=== PATIENT | female | born 1975 | race Caucasian/White ===

== ENCOUNTER 2018-12-21 14:10 | Emergency (ER) | payer MEDICAID ==
[~2018-12-21] VITALS: Ht 162.6 cm; Wt 69.4 kg
[2018-12-21 14:18] VITALS: BP 134/75
[2018-12-21] MEDS ORDERED: LIDOCAINE-MPF 1%, 5ML ONE (14:29)
[2018-12-21] MEDS ORDERED: LIDOCAINE-MPF 1%, 5ML INFIL ONE (14:30)
--- NOTE | 2018-12-21 15:08 | NUR ---
PA AT BEDSIDE FOR REDUCTION, NEEDS POSTERIOR SPLINT
--- NOTE | 2018-12-21 15:53 | NUR ---
PT TO XRAY
--- NOTE | 2018-12-21 16:20 | NUR ---
TECH AT BEDSIDE FOR SPLINT
== END 2018-12-21 16:45 | disposition home or self-care (01) ==
LOC: ED 16:00
DX: S93.122A Dislocation of metatarsophalangeal joint of left great toe, initial encounter (principal); W10.9XXA Fall (on) (from) unspecified stairs and steps, initial encounter; Y93.89 Activity, other specified; Y92.009 Unspecified place in unspecified non-institutional (private) residence as the place of occurrence of the external cause; Y99.8 Other external cause status
CPT/HCPCS: 28630; 99284

== ENCOUNTER 2018-12-26 16:01 | Emergency (ER) | payer MEDICAID ==
[~2018-12-26] VITALS: Ht 162.6 cm; Wt 70.1 kg
[2018-12-26 16:13] VITALS: BP 117/81
[2018-12-26] MEDS ORDERED: BUSP5TAB2 PO (16:26)
[2018-12-26] MEDS ORDERED: BUPR300T49 PO (16:26)
== END 2018-12-26 17:40 | disposition home or self-care (01) ==
LOC: ED 17:28
DX: G89.11 Acute pain due to trauma (principal); M79.672 Pain in left foot
CPT/HCPCS: 29515; 99283